=== PATIENT | male | born 1930 | race Caucasian/White ===

== ENCOUNTER 2016-10-26 07:57 | Day surgery (SDC) | payer OTHER ==
[2016-10-26] MEDS ORDERED: FAMOTIDINE 20 MG TAB PO ONE (08:00)
[2016-10-26] MEDS ORDERED: diphenhydrAMINE 25 MG CAP PO ONE ×2 (08:00→08:36)
[2016-10-26] MEDS ORDERED: DIAZEPAM 5 MG TAB PO ONE (08:00)
[2016-10-26] MEDS ORDERED: NS 1,000 ML IV ONE (08:00)
[2016-10-26] MEDS ORDERED: ASPIRIN EC 325 MG TAB PO ONE ×2 (08:00→08:37)
--- NOTE | 2016-10-26 08:31 | CPEKG ---
Heart Rate: 59 RR Interval: 1017 P-R Interval: 184 QRSD Interval: 90 QT Interval: 436 QTC Interval: 432 P [place]: -37 QRS [place]: 12 T Wave [place]: 2 EKG Severity - NORMAL ECG - EKG Impression: SINUS RHYTHM Electronically Signed By: Lars Kohli 26-Oct-2016 09:11:33
[2016-10-26] MEDS ORDERED: DIAZEPAM 5 MG TAB ONE (08:37)
[2016-10-26] MEDS ORDERED: FAMOTIDINE 20 MG TAB ONE (08:37)
[2016-10-26 08:51] LABS: ADD MORPH? NO; ADD SCAN? YES; ATYPICAL LYMPHOCYTE FLAG 10 (0-99); FRAGMENT RBC FLAG 20 (0-99); HEMATOCRIT 42.1 % (40.0-51.0); HEMOGLOBIN 14.4 g/dL (13.7-17.5); LEFT SHIFT FLG 0 (0-99); LIPEMIA HEMOLYSIS FLAG 90 (0-99); MEAN CELL HEMOGLOBIN 30.8 pg (27.9-34.1); MEAN CELL HEMOGLOBIN CONCENTR. 34.2 g/dL (32.4-36.7); MEAN CELL VOLUME 90.1 fL (81.5-99.8); MEAN PLATELET VOLUME 10.1 fL (8.7-11.7); PLATELET CLUMPS FLAG 0 (0-99); PLATELET COUNT 212 10^3/uL (150-400); RED BLOOD CELL COUNT 4.67 10^6/uL (4.40-6.38); RED CELL DISTRIBUTION WIDTH 12.7 % (11.5-15.2)
[2016-10-26 08:58] LABS: ANION GAP 9 mEq/L (8-16); CALCIUM 9.2 mg/dL (8.5-10.4); CARBON DIOXIDE 25 mEq/l (22-31); CHLORIDE 104 mEq/L (97-110); CHOLESTEROL 130 mg/dL (140-220); CHOLESTEROL/HDL RATIO 2.36 RATIO (1.00-4.97); CREATININE 1.1 mg/dL (0.7-1.3); GLOMERULAR FILTRATION RATE > 60; GLUCOSE 88 mg/dL (70-100); HIGH DENSITY LIPOPROTEIN 55 mg/dL (40-65); INR 1.06 (0.83-1.16); LDL/HDL RATIO 1.16 RATIO (1.00-3.64); LOW DENSITY LIPOPROTEIN 64 mg/dL (80-100); NON-HIGH DENSITY LIPOPROTEIN 75 mg/dL (90-129); POTASSIUM 4.8 mEq/L (3.5-5.2); PROTIME(PATIENT) 13.7 SEC (12.0-15.0); SODIUM 138 mEq/L (134-144); TRIGLYCERIDE 58 mg/dL (40-150); VERY LOW DENSITY LIPOPROTEINS 11 mg/dL (8-25)
[2016-10-26] MEDS ORDERED: LIDOCAINE 1% 30 ML SDV ONE (09:05)
[2016-10-26] MEDS ORDERED: fentaNYL 100 MCG/2 ML INJ ONE (09:06)
[2016-10-26] MEDS ORDERED: MIDAZOLAM 2 MG/2 ML VIAL ONE (09:06)
[2016-10-26] MEDS ORDERED: HEPARIN 10,000 UNIT/10 ML MDV ONE (09:07)
[2016-10-26] MEDS ORDERED: VERAPAMIL 5 MG/2 ML VIAL ONE (09:07)
[2016-10-26] MEDS ORDERED: IOPAMIDOL (ISOVUE 370) 100 ML BTL IV ONE (09:07)
[2016-10-26 09:17] LABS: ADD DIFF? YES; SCAN POSITIVE
[2016-10-26 09:26] LABS: LARGE PLATELETS PRESENT; MICROCYTES 1+; POLYCHROMASIA 1+
[2016-10-26 09:27] LABS: PLATELET ESTIMATE ADEQUATE (ADEQ)
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
== END 2016-10-26 14:00 | disposition home or self-care (01) ==
LOC: FCATH 07:57
PROVIDERS: ATTEND Internal Medicine Cardiovascular Disease
PROC: B2111ZZ Fluoroscopy of Multiple Coronary Arteries using Low Osmolar Contrast (ICD-10-PCS; principal; 2016-10-26)
PROC: B2151ZZ Fluoroscopy of Left Heart using Low Osmolar Contrast (ICD-10-PCS; principal; 2016-10-26)
PROC: 4A023N7 Measurement of Cardiac Sampling and Pressure, Left Heart, Percutaneous Approach (ICD-10-PCS; principal; 2016-10-26)
DX: I47.1 Supraventricular tachycardia (principal); R55 Syncope and collapse; I10 Essential (primary) hypertension; E78.5 Hyperlipidemia, unspecified; J44.9 Chronic obstructive pulmonary disease, unspecified; I71.2 Thoracic aortic aneurysm, without rupture; I25.10 Atherosclerotic heart disease of native coronary artery without angina pectoris; Z85.46 Personal history of malignant neoplasm of prostate; Z88.2 Allergy status to sulfonamides
CPT/HCPCS: 93005; 93458; C1769; J1644; J2250; J3010; Q9967

== ENCOUNTER 2016-11-07 11:01 | Observation (INO) | payer OTHER ==
[2016-11-07] MEDS ORDERED: NS 1,000 ML IV ONE (11:09)
--- NOTE | 2016-11-07 11:37 | CPEKG ---
Heart Rate: 58 RR Interval: 1034 P-R Interval: 188 QRSD Interval: 96 QT Interval: 444 QTC Interval: 437 P [place]: 0 QRS [place]: 7 T Wave [place]: 17 EKG Severity - NORMAL ECG - EKG Impression: SINUS RHYTHM Electronically Signed By: Satish Smith 07-Nov-2016 17:22:25
[2016-11-07] MEDS ORDERED: BUPIVACAINE 0.5% 30 ML SDV ONE (11:45)
[2016-11-07] MEDS ORDERED: LIDOCAINE 1% 30 ML SDV ONE (11:45)
[2016-11-07] MEDS ORDERED: ISOPROTERENOL HCL 0.2 MG/ML 5ML AMP ONE (11:45)
[2016-11-07] MEDS ORDERED: HEPARIN 10,000 UNIT/10 ML MDV ONE (11:45)
[2016-11-07 11:54] LABS: % IMMATURE GRANULYOCYTES 0.4 % (0.0-1.1); ABSOLUTE IMMATURE GRANULOCYTES 0.03 10^3/uL (0.00-0.10); ADD DIFF? NO; ADD MORPH? NO; ADD SCAN? NO; ATYPICAL LYMPHOCYTE FLAG 20 (0-99); FRAGMENT RBC FLAG 0 (0-99); HEMATOCRIT 44.9 % (40.0-51.0); HEMOGLOBIN 15.2 g/dL (13.7-17.5); LEFT SHIFT FLG 0 (0-99); LIPEMIA HEMOLYSIS FLAG 90 (0-99); MEAN CELL HEMOGLOBIN 31.2 pg (27.9-34.1); MEAN CELL HEMOGLOBIN CONCENTR. 33.9 g/dL (32.4-36.7); MEAN CELL VOLUME 92.2 fL (81.5-99.8); PLATELET CLUMPS FLAG 0 (0-99); PLATELET COUNT 237 10^3/uL (150-400); RED BLOOD CELL COUNT 4.87 10^6/uL (4.40-6.38); RED CELL DISTRIBUTION WIDTH 12.5 % (11.5-15.2)
[2016-11-07 12:08] LABS: INR 0.95 (0.83-1.16); PROTIME(PATIENT) 12.6 SEC (12.0-15.0)
[2016-11-07 12:09] LABS: APTT 28.6 SEC (23.0-38.0)
[2016-11-07 12:28] LABS: ANION GAP 11 mEq/L (8-16); CALCIUM 9.1 mg/dL (8.5-10.4); CARBON DIOXIDE 25 mEq/l (22-31); CHLORIDE 101 mEq/L (97-110); CREATININE 0.9 mg/dL (0.7-1.3); GLOMERULAR FILTRATION RATE > 60; GLUCOSE 82 mg/dL (70-100); MAGNESIUM 1.9 mg/dL (1.6-2.3); POTASSIUM 4.8 mEq/L (3.5-5.2); SODIUM 137 mEq/L (134-144)
[2016-11-07] MEDS ORDERED: PROPOFOL/EMULSION 500 MG/50 ML BOTTLE IV ONE ×2 (12:40→13:53)
[2016-11-07] MEDS ORDERED: MIDAZOLAM 2 MG/2 ML VIAL ONE (12:40)
[2016-11-07] MEDS ORDERED: fentaNYL 100 MCG/2 ML INJ ONE (13:51)
[2016-11-07] MEDS ORDERED: ONDANSETRON 4 MG/2 ML VIAL IVP PRN (14:47)
[2016-11-07] MEDS ORDERED: OXYCODONE/APAP 5/325 TAB PO PRN (14:47)
[2016-11-07] MEDS ORDERED: ACETAMINOPHEN 325 MG TAB PO PRN (14:47)
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
[2016-11-07] MEDS ORDERED: ATROPINE SULFATE 1 MG/10 ML SYR ONE (14:55)
[2016-11-07] MEDS ORDERED: FAMOTIDINE 20 MG TAB PO SCH (21:00)
[2016-11-07] MEDS ORDERED: ATORVASTATIN CALCIUM 20 MG TAB PO SCH (21:00)
[2016-11-07] MEDS ORDERED: ASPIRIN 81 MG CHEWABLE TAB PO SCH (21:00)
[2016-11-07] MEDS ORDERED: LISINOPRIL 10 MG TAB PO SCH (21:00)
[2016-11-07] MEDS ORDERED: NON-FORMULARY NEW DRUG (Simvastatin [Zocor] 40 MG) PO SCH (21:00)
[2016-11-07] MEDS ORDERED: NON-FORMULARY NEW DRUG (Ranitidine Hcl [Ranitidine Hcl] 150 MG) PO SCH (21:00)
[2016-11-08 07:34] VITALS: BP 135/64; PULSE 57; RESP 12; TEMP 98; O2SAT 91
[2016-11-08] MEDS ORDERED: CETIRIZINE 10 MG TAB PO SCH (09:00)
[2016-11-08] MEDS ORDERED: CLOPIDOGREL BISULFATE 75 MG TAB PO SCH (09:00)
[2016-11-08] MEDS ORDERED: ASPIRIN 81 MG CHEWABLE TAB PO SCH (09:00)
[2016-11-08] MEDS ORDERED: NEBIVOLOL HCL 5 MG TAB PO SCH (09:00)
[2016-11-08] MEDS ORDERED: NON-FORMULARY NEW DRUG (Loratadine [Claritin 10 Mg] 10 MG) PO SCH (09:00)
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
== END 2016-11-08 10:46 | disposition home or self-care (01) ==
LOC: FCATH 11:01 → F2W 14:47
PROVIDERS: ADMIT Internal Medicine Cardiovascular Disease; ATTEND Internal Medicine Cardiovascular Disease
PROC: 0JH632Z Insertion of Monitoring Device into Chest Subcutaneous Tissue and Fascia, Percutaneous Approach (ICD-10-PCS; principal; 2016-11-07)
PROC: 4A023FZ Measurement of Cardiac Rhythm, Percutaneous Approach (ICD-10-PCS; principal; 2016-11-07)
PROC: 3E033KZ Introduction of Other Diagnostic Substance into Peripheral Vein, Percutaneous Approach (ICD-10-PCS; principal; 2016-11-07)
DX: R55 Syncope and collapse (principal); I25.10 Atherosclerotic heart disease of native coronary artery without angina pectoris; I71.4 Abdominal aortic aneurysm, without rupture; E78.5 Hyperlipidemia, unspecified; I10 Essential (primary) hypertension; I47.2 Ventricular tachycardia
CPT/HCPCS: 33282; 93005; 93620; 93621; 93623; C1731; C1764; G0378; J1644; J2250; J2704; J3010; J0461